=== PATIENT | female | born 1990 | race Two or more races ===

== ENCOUNTER 2019-07-17 00:04 | Inpatient (IN) | payer SELFPAY ==
[~2019-07-17] VITALS: Ht 165.1 cm; Wt 87.5 kg
[2019-07-17] MEDS ORDERED: IV RINGERS,LACTATED 1000ML 1,000 ML IV SCH ×2 (00:15→00:45)
[2019-07-17] MEDS ORDERED: OXYTOCIN 30 UNIT/500 ML PREMIX 500 ML IV ONE (00:25)
[2019-07-17] MEDS ORDERED: 0.9 % SODIUM CHLORIDE 10 ML DISP.SYRIN. IV PRN ×3 (00:45→10:00)
[2019-07-17] MEDS ORDERED: OXYTOCIN 30 UNIT/500 ML PREMIX 500 ML IV PRN ×4 (00:45→10:00)
[2019-07-17] MEDS ORDERED: ACETAMINOPHEN 325 MG TABLET. PO PRN ×3 (00:45→10:00)
[2019-07-17] MEDS ORDERED: TERBUTALINE 1 MG/ML VIAL. SQ PRN (00:45)
[2019-07-17] MEDS ORDERED: IBUPROFEN 400 MG TABLET. PO PRN ×2 (00:45→10:00)
[2019-07-17 01:07] LABS: BASO # 0.1 x10^3/uL (0.0-0.2); BASO % 1 % (0-3); EOS # 0.1 x10^3/uL (0.0-0.7); EOS % 1 % (0-3); HEMATOCRIT 29.9 % (36.0-47.0); LYMPH # 2.6 x10^3/uL (1.0-4.8); LYMPH % 24 % (24-48); MEAN CORPUSCULAR HEMOGLOBIN 27 pg (25-35); MEAN CORPUSCULAR HGB CONC 33 g/dL (31-37); MEAN CORPUSCULAR VOLUME 82 fL (79-100); MONO % 9 % (0-9); NEUT % 66 % (31-73); PLATELET COUNT 292 x10^3/uL (140-400); RED BLOOD COUNT 3.66 x10^6/uL (3.50-5.40); WHITE BLOOD COUNT 10.7 x10^3/uL (4.0-11.0)
[2019-07-17 02:05] VITALS: BP 115/67
[2019-07-17] MEDS ORDERED: OXYTOCIN PREMIX 30 UNIT/500 ML NS BAG. IV ONE (02:30)
[2019-07-17 07:10] VITALS: BP 110/68
[2019-07-17] MEDS ORDERED: MMR per PROTOCOL. MC PRN ×2 (08:30→10:00)
[2019-07-17] MEDS ORDERED: BENZOCAINE 20% TOPICAL AEROSOL SPRAY 57GM CAN. TP PRN ×2 (08:30→10:00)
[2019-07-17] MEDS ORDERED: HYDROCORTISONE 1% TOPICAL OINTMENT 30GM TUBE. TP PRN ×2 (08:30→10:00)
[2019-07-17] MEDS ORDERED: diphenhydrAMINE HCL 25 MG CAPSULE PO PRN ×2 (08:30→10:00)
[2019-07-17] MEDS ORDERED: ZOLPIDEM 5 MG TABLET. PO PRN ×2 (08:30→10:00)
[2019-07-17] MEDS ORDERED: MAG HYDROX/ALUMINUM HYD/SIMETH 30 ML ORAL.SUSP PO PRN ×2 (08:30→10:00)
[2019-07-17] MEDS ORDERED: MAGNESIUM HYDROXIDE 2,400 MG/30 ML ORAL.SUSP. PO PRN ×2 (08:30→10:00)
[2019-07-17] MEDS ORDERED: TDaP (Adacel) per PROTOCOL. MC PRN ×2 (08:30→10:00)
[2019-07-17] MEDS ORDERED: oxyCODONE/APAP 5/325 1 TAB TABLET PO PRN ×2 (08:30→10:00)
[2019-07-17] MEDS ORDERED: SIMETHICONE 80 MG TAB.CHEW PO PRN ×2 (08:30→10:00)
[2019-07-17] MEDS ORDERED: PHENYLEPH/MINERAL OIL/PETROLAT RECTAL OINTMENT TUBE. RC PRN ×2 (08:30→10:00)
--- NOTE | 2019-07-17 09:56 | PDOC1 ---
OB - History Hx of Present Care: Good Care Ultrasounds: Normal mid trimester US Obstetrical Complications: None Medical Complications: None Past Family/Social History * Past Medical, Surgical, Family and Obstetric Histories reviewed from chart. Rubella: Immune RPR/VDRL: Negative GBS Status: Negative HBsAG: Negative OB - Chief Complaint & HPI Date of Admission: Date of Admission: Jul 17, 2019 at 00:04 Chief Complaint/History : 5 Para: 4 EGA: 40 Reason for admission: active labor Admission Nurse Assessment Rev: Yes OB - Admission Exam Physical Exam Vitals: VS - Last 72 Hours, by Label Date Time Temp Pulse Resp B/P (MAP) Pulse Ox O2 Delivery O2 Flow Rate FiO2 07/17/19 07:10 98.1 75 18 110/68 (82) 95 Room Air 98.1 07/17/19 02:05 99.1 85 22 115/67 (83) Room Air 99.1 HEENT: Normal Heart: Regular Rate Lungs: Clear, Equal Abdomen: Gravid, Non tender, Soft Extremities: Edema Reflexes: Normal Cervical Dilatation: 10cm Effacement: 100% Station: +1 Membranes: Ruptured Amniotic Fluid: Clear Heart Rate: Normal Accelerations: Accelerations Present Decelerations: No decelerations Short Term Variability: Present Therapeutic Assistant Variability: Moderate Contractions on Admission: < 5 Minutes Apart Intensity: Firm Text A: 40 wks IUP SROM Active labor P: Admit for imminent delivery. KATLYN ANDERSON Jr, MD Jul 17, 2019 09:56
--- NOTE | 2019-07-17 09:57 | PDOC ---
VAGINAL DELIVERY DATE DATE: 07/17/19 TIME: 09:56 : 5 Para: 5 EGA: 40 VAGINAL DELIVERY: VTX VACCUM ASSISTED: No PLACENTA: Spontaneous 8/9 SEX: Male WEIGHT Weight [ pending ] Nuchal Cord: No Amniotic Fluid: Clear PAIN: Natural EPISIOTOMY: No EXTENSION: No EBL 300 ml COMPLICATIONS none CONDITION pt. stable Signs of Intrauterine Infectio: None Shoulder Dystocia: No KATLYN ANDERSON Jr, MD Jul 17, 2019 09:57
[2019-07-17] MEDS ORDERED: DOCUSATE SODIUM 100 MG CAPSULE. PO PRN (10:00)
[2019-07-17] MEDS: DOCUSATE SODIUM 100 MG CAPSULE. PO PRN ×2 (10:21→22:54)
[2019-07-17] MEDS: MULTIVITAMIN with MINERAL TABLET. PO SCH (10:21)
[2019-07-17] MEDS: IBUPROFEN 400 MG TABLET. PO PRN ×2 (10:21→23:01)
[2019-07-17] MEDS: FERROUS SULFATE 325 MG TABLET. PO SCH ×2 (10:21→18:10)
[2019-07-17 10:30] VITALS: BP 108/66
[2019-07-17 18:21] VITALS: BP 110/70
[2019-07-17 23:05] VITALS: BP 118/68
[2019-07-18 06:05] VITALS: BP 103/67
[2019-07-18 06:57] LABS: BASO % 0 % (0-3); EOS # 0.1 x10^3/uL (0.0-0.7); EOS % 1 % (0-3); HEMATOCRIT 28.3 % (36.0-47.0); HEMOGLOBIN 9.3 g/dL (12.0-15.5); LYMPH % 35 % (24-48); MEAN CORPUSCULAR HEMOGLOBIN 27 pg (25-35); MEAN CORPUSCULAR HGB CONC 33 g/dL (31-37); MEAN CORPUSCULAR VOLUME 82 fL (79-100); MONO # 0.8 x10^3/uL (0.0-1.1); MONO % 9 % (0-9); NEUT # 4.8 x10^3/uL (1.8-7.7); NEUT % 55 % (31-73); PLATELET COUNT 269 x10^3/uL (140-400); RED BLOOD COUNT 3.45 x10^6/uL (3.50-5.40); RED CELL DISTRIBUTION WIDTH 13.1 % (11.5-14.5); WHITE BLOOD COUNT 8.7 x10^3/uL (4.0-11.0)
[2019-07-18] MEDS: FERROUS SULFATE 325 MG TABLET. PO SCH ×2 (08:00→17:07)
[2019-07-18] MEDS ORDERED: FERROUS SULFATE 325 MG TABLET. PO SCH ×2 (08:00)
--- NOTE | 2019-07-18 08:22 | PDOC ---
OB Progress Note Date of Service 07/18/19 Time of Evaluation 0820 Notes Pt. feeling well. No complaints. Lab Laboratory Tests Test 07/17/19 00:59 07/18/19 06:05 White Blood Count 10.7 x10^3/uL (4.0-11.0) 8.7 x10^3/uL (4.0-11.0) Red Blood Count 3.66 x10^6/uL (3.50-5.40) 3.45 x10^6/uL (3.50-5.40) Hemoglobin 10.0 g/dL (12.0-15.5) 9.3 g/dL (12.0-15.5) Hematocrit 29.9 % (36.0-47.0) 28.3 % (36.0-47.0) Mean Corpuscular Volume 82 fL (79-100) 82 fL (79-100) Mean Corpuscular Hemoglobin 27 pg (25-35) 27 pg (25-35) Mean Corpuscular Hemoglobin Concent 33 g/dL (31-37) 33 g/dL (31-37) Red Cell Distribution Width 13.0 % (11.5-14.5) 13.1 % (11.5-14.5) Platelet Count 292 x10^3/uL (140-400) 269 x10^3/uL (140-400) Neutrophils (%) (Auto) 66 % (31-73) 55 % (31-73) Lymphocytes (%) (Auto) 24 % (24-48) 35 % (24-48) Monocytes (%) (Auto) 9 % (0-9) 9 % (0-9) Eosinophils (%) (Auto) 1 % (0-3) 1 % (0-3) Basophils (%) (Auto) 1 % (0-3) 0 % (0-3) Neutrophils # (Auto) 7.0 x10^3/uL (1.8-7.7) 4.8 x10^3/uL (1.8-7.7) Lymphocytes # (Auto) 2.6 x10^3/uL (1.0-4.8) 3.0 x10^3/uL (1.0-4.8) Monocytes # (Auto) 1.0 x10^3/uL (0.0-1.1) 0.8 x10^3/uL (0.0-1.1) Eosinophils # (Auto) 0.1 x10^3/uL (0.0-0.7) 0.1 x10^3/uL (0.0-0.7) Basophils # (Auto) 0.1 x10^3/uL (0.0-0.2) 0.0 x10^3/uL (0.0-0.2) Treponema pallidum Antibody Nonreactive (Nonreactive) Laboratory Tests Test 07/18/19 06:05 White Blood Count 8.7 x10^3/uL (4.0-11.0) Red Blood Count 3.45 x10^6/uL (3.50-5.40) Hemoglobin 9.3 g/dL (12.0-15.5) Hematocrit 28.3 % (36.0-47.0) Mean Corpuscular Volume 82 fL (79-100) Mean Corpuscular Hemoglobin 27 pg (25-35) Mean Corpuscular Hemoglobin Concent 33 g/dL (31-37) Red Cell Distribution Width 13.1 % (11.5-14.5) Platelet Count 269 x10^3/uL (140-400) Neutrophils (%) (Auto) 55 % (31-73) Lymphocytes (%) (Auto) 35 % (24-48) Monocytes (%) (Auto) 9 % (0-9) Eosinophils (%) (Auto) 1 % (0-3) Basophils (%) (Auto) 0 % (0-3) Neutrophils # (Auto) 4.8 x10^3/uL (1.8-7.7) Lymphocytes # (Auto) 3.0 x10^3/uL (1.0-4.8) Monocytes # (Auto) 0.8 x10^3/uL (0.0-1.1) Eosinophils # (Auto) 0.1 x10^3/uL (0.0-0.7) Basophils # (Auto) 0.0 x10^3/uL (0.0-0.2) Medications Current Medications Ringer's Solution 1,000 ml @ 125 mls/hr Q8H IV Last administered on 07/17/19at 00:30; Start 07/17/19 at 00:15; Stop 07/17/19 at 08:21; Status DC Oxytocin/Sodium Chloride 500 ml @ As Directed STK-MED ONCE IV ; Start 07/17/19 at 00:25; Stop 07/17/19 at 00:25; Status DC Sodium Chloride (Normal Saline Flush) 3 ml QSHIFT PRN IV AFTER MEDS AND BLOOD DRAWS; Start 07/17/19 at 00:45; Stop 07/17/19 at 08:21; Status DC Ringer's Solution 1,000 ml @ 125 mls/hr Q8H IV ; Start 07/17/19 at 00:45; Stop 07/17/19 at 08:21; Status DC Acetaminophen (Tylenol) 650 mg PRN Q6HRS PRN PO MILD PAIN / TEMP; Start 07/17/19 at 00:45; Stop 07/17/19 at 08:28; Status DC Terbutaline Sulfate (Brethine) 0.25 mg 1X PRN PRN SQ SEE COMMENTS; Start 07/17/19 at 00:45; Stop 07/17/19 at 08:21; Status DC Oxytocin/Sodium Chloride 500 ml @ 0 mls/hr CONT PRN IV SEE I/O RECORD; Start 07/17/19 at 00:45; Stop 07/17/19 at 08:21; Status DC Oxytocin/Sodium Chloride 500 ml @ 0 mls/hr CONT PRN PRN IV Post delivery bleeding Last administered on 07/17/19at 00:30; Start 07/17/19 at 00:45; Stop 07/17/19 at 08:21; Status DC Ibuprofen (Motrin) 800 mg PRN Q6HRS PRN PO PAIN Last administered on 07/17/19at 02:39; Start 07/17/19 at 00:45; Stop 07/17/19 at 08:28; Status DC Sodium Chloride (Normal Saline Flush) 10 ml QSHIFT PRN IV AFTER MEDS AND BLOOD DRAWS; Start 07/17/19 at 08:30 Oxytocin/Sodium Chloride 500 ml @ 62.5 mls/hr CONT PRN IV SEE I/O RECORD; Start 07/17/19 at 08:30; Stop 07/17/19 at 16:29; Status DC Acetaminophen (Tylenol) 650 mg PRN Q6HRS PRN PO MILD PAIN / TEMP; Start at 08:30 Ibuprofen (Motrin) 800 mg PRN Q8HRS PRN PO INFLAMMATION/PAIN PREVENTION Last administered on 07/17/19at 23:01; Start 07/17/19 at 08:30 Docusate Sodium (Colace) 100 mg PRN BID PRN PO HARD STOOLS Last administered on 07/17/19at 22:54; Start 07/17/19 at 08:30 Magnesium Hydroxide (Milk Of Magnesia) 2,400 mg PRN DAILY PRN PO CONSTIPATION; Start 07/17/19 at 08:30 Al Hydroxide/Mg Hydroxide (Mylanta Plus Xs) 30 ml PRN Q4HRS PRN PO HEARTBURN / GAS; Start 07/17/19 at 08:30 Simethicone (Gas-X) 80 mg PRN AFTMEALHC PRN PO GAS / BLOATING; Start 07/17/19 at 08:30 Diphenhydramine HCl (Benadryl) 25 mg PRN Q6HRS PRN PO ITCHING; Start 07/17/19 at 08:30 Benzocaine (Americaine) 1 spray PRN QID PRN TP TOPICAL PAIN; Start 07/17/19 at 08:30 Phenyleph/Shark Oil/Min Oil/Petrol (Preparation H) 1 mayo PRN QID PRN RC RECTAL PAIN; Start 07/17/19 at 08:30 Hydrocortisone (Cortaid) 1 mayo PRN QID PRN TP PERINEAL PAIN; Start 07/17/19 at 08:30 Ferrous Sulfate (Feosol) 325 mg BIDWMEALS PO ; Start 07/18/19 at 08:00; Stop 07/17/19 at 09:47; Status DC Zolpidem Tartrate (Ambien) 5 mg PRN QHS PRN PO INSOMNIA, MAY REPEAT X1; Start 07/17/19 at 08:30 Info (Do NOT chart on this placeholder) 1 ea 1X PRN PRN MC SEE COMMENTS; Start 07/17/19 at 08:30 Info (Do NOT chart on this placeholder) 1 ea 1X PRN PRN MC SEE COMMENTS; Start 07/17/19 at 08:30 Oxycodone/ Acetaminophen (Percocet 5/325) 2 tab PRN Q4HRS PRN PO MODERATE PAIN, SEVERE PAIN; Start 07/17/19 at 08:30 Multivitamins (Thera M Plus) 1 tab DAILY PO Last administered on 07/17/19at 10 :21; Start 07/17/19 at 09:00 Oxytocin/Sodium Chloride (Oxytocin Premix Infusion) 30 unit STK-MED ONCE IV ; Start 07/17/19 at 02:30; Stop 07/17/19 at 08:32; Status DC Ferrous Sulfate (Feosol) 325 mg BIDWMEALS PO Last administered on 07/17/19at 18:10; Start 07/17/19 at 10:30 Sodium Chloride (Normal Saline Flush) 10 ml QSHIFT PRN IV AFTER MEDS AND BLOOD DRAWS; Start 07/17/19 at 10:00; Status UNV Oxytocin/Sodium Chloride 500 ml @ 62.5 mls/hr CONT PRN IV SEE I/O RECORD; Start 07/17/19 at 10:00; Stop 07/17/19 at 17:59; Status UNV Acetaminophen (Tylenol) 650 mg PRN Q6HRS PRN PO MILD PAIN / TEMP; Start 07/17/19 at 10:00; Status UNV Ibuprofen (Motrin) 800 mg PRN Q8HRS PRN PO INFLAMMATION/PAIN PREVENTION; Start 07/17/19 at 10:00; Status UNV Docusate Sodium (Colace) 100 mg PRN BID PRN PO CONSTIPATION; Start 07/17/19 at 10:00; Status UNV Magnesium Hydroxide (Milk Of Magnesia) 2,400 mg PRN DAILY PRN PO CONSTIPATION; Start 07/17/19 at 10:00; Status UNV Al Hydroxide/Mg Hydroxide (Mylanta Plus Xs) 30 ml PRN Q4HRS PRN PO HEARTBURN / GAS; Start 07/17/19 at 10:00; Status UNV Simethicone (Gas-X) 80 mg PRN AFTMEALHC PRN PO GAS / BLOATING; Start 07/17/19 at 10:00; Status UNV Diphenhydramine HCl (Benadryl) 25 mg PRN Q6HRS PRN PO ITCHING; Start 07/17/19 at 10:00; Status UNV Benzocaine (Americaine) 1 spray PRN QID PRN TP TOPICAL PAIN; Start 07/17/19 at 10:00; Status UNV Phenyleph/Shark Oil/Min Oil/Petrol (Preparation H) 1 mayo PRN QID PRN RC RECTAL PAIN; Start 07/17/19 at 10:00; Status UNV Hydrocortisone (Cortaid) 1 mayo PRN QID PRN TP PERINEAL PAIN; Start 07/17/19 at 10:00; Status UNV Ferrous Sulfate (Feosol) 325 mg BIDWMEALS PO ; Start 07/18/19 at 08:00; Status UNV Zolpidem Tartrate (Ambien) 5 mg PRN QHS PRN PO INSOMNIA, MAY REPEAT X1; Start 07/17/19 at 10:00; Status UNV Info (Do NOT chart on this placeholder) 1 ea 1X PRN PRN MC SEE COMMENTS; Start 07/17/19 at 10:00; Status UNV Info (Do NOT chart on this placeholder) 1 ea 1X PRN PRN MC SEE COMMENTS; Start 07/17/19 at 10:00; Status UNV Oxycodone/ Acetaminophen (Percocet 5/325) 2 tab PRN Q4HRS PRN PO MODERATE PAIN, SEVERE PAIN; Start 07/17/19 at 10:00; Status UNV Multivitamins (Thera M Plus) 1 tab DAILY PO ; Start 07/18/19 at 09:00; Status UNV Exam Abd: soft, non tender, fundus firm Assessment PPD#1 s/p Plan of Care: Continue current Tx, Mgmt KATLYN ANDERSON Jr, MD Jul 18, 2019 08:22
[2019-07-18] MEDS ORDERED: MULTIVITAMIN with MINERAL TABLET. PO SCH (09:00)
[2019-07-18] MEDS: MULTIVITAMIN with MINERAL TABLET. PO SCH (09:00)
[2019-07-18] MEDS: DOCUSATE SODIUM 100 MG CAPSULE. PO PRN ×2 (10:25→17:06)
[2019-07-18 12:59] VITALS: BP 114/59
[2019-07-18] MEDS: IBUPROFEN 400 MG TABLET. PO PRN (14:16)
[2019-07-18 18:04] VITALS: BP 111/72
[2019-07-18 23:04] VITALS: BP 104/64
[2019-07-19] MEDS: IBUPROFEN 400 MG TABLET. PO PRN (05:22)
[2019-07-19 05:28] VITALS: BP 112/76
[2019-07-19] MEDS: FERROUS SULFATE 325 MG TABLET. PO SCH ×2 (08:08→08:36)
[2019-07-19] MEDS: DOCUSATE SODIUM 100 MG CAPSULE. PO PRN ×2 (08:08→08:36)
--- NOTE | 2019-07-19 08:50 | PDOC3 ---
OB DISCHARGE SUMMARY DATE OF ADMISSION: 07/17/19 DATE OF DISCHARGE: 07/19/19 REASON FOR ADMISSION: Onset of labor INTRAPARTUM PROCEDURES: Spontanous Vag Deliv DISCHARGE DIAGNOSIS: Term Delivered DISCHARGE INFORMATION: Activity (ad vargas), Diet (regular), Instructions (pelvic rest x 6 wks) HOSPITAL COURSE Term gestation delivered vaginally without complications. KATLYN ANDERSON Jr, MD Jul 19, 2019 08:50
[2019-07-19] MEDS ORDERED: IBUP-1027 PO (08:51)
--- NOTE | 2019-07-19 08:52 | DISCH ---
DISCHARGE INSTRUCTIONS Condition on Discharge Condition on Discharge: Stable Activity After Discharge Activity Instructions for Disc: Resume previous activity, Activity as tolerated Lifting Instructions after Dis: No heavy lifting, No pulling or pushing, Do not lift >10 pounds Exercise Instruction after Dis: Progress as tolerated Driving Instructions after Dis: Do not drive today Weight Bearing Status after Di: As tolerated Diet after Discharge Diet after Discharge: Regular Diet Texture: Regular Wound Incision Care Wound/Incision Care: No wound care needed Checks after Discharge Checks after discharge: Check your Temp as needed Contacting the DRMonae after DC Call your doctor for: If your condition worsens Follow-Up Follow up with: Katerine in 6 wks Treatment/Equipment after DC Adaptive Equipment Issued: None KATLYN ANDERSON Jr, MD Jul 19, 2019 08:52
--- NOTE | 2019-07-19 09:22 | NUR ---
home instructions gone over with parents, no questions on home care to see Katerine in 6 weeks
[2019-07-19 10:30] VITALS: BP_SYST 110
== END 2019-07-19 13:45 | disposition home or self-care (01) | DRG 807 ==
LOC: 3 SO LND 00:04 → OBSVTOIN 00:04 → 3 NORTH 07:10
PROVIDERS: ADMIT Obstetrics & Gynecology; ATTEND Obstetrics & Gynecology
PROC: 10E0XZZ Delivery of Products of Conception, External Approach (ICD-10-PCS; principal; 2019-07-17)
DX: O42.92 Full-term premature rupture of membranes, unspecified as to length of time between rupture and onset of labor (principal); Z37.0 Single live birth; Z3A.40 40 weeks gestation of pregnancy
CPT/HCPCS: 36415; 85025; 86592; 86850; 86900; 86901; J2590; J7120; G0378